=== PATIENT | male | born 1950 | race Caucasian/White ===

== ENCOUNTER 2016-09-24 14:30 | Emergency (ER) | payer MEDICARE, MEDICAID ==
[~2016-09-24] VITALS: Ht 180.3 cm; Wt 79.2 kg
[2016-09-24 14:32] VITALS: BP 147/83
== END 2016-09-24 14:52 | disposition home or self-care (01) ==
LOC: ED 14:30
DX: J01.00 Acute maxillary sinusitis, unspecified (principal); J01.20 Acute ethmoidal sinusitis, unspecified; J01.10 Acute frontal sinusitis, unspecified; E11.9 Type 2 diabetes mellitus without complications
CPT/HCPCS: 99283

== ENCOUNTER 2016-09-29 13:21 | Emergency (ER) | payer MEDICARE, MEDICAID ==
[~2016-09-29] VITALS: Ht 180.3 cm; Wt 78.0 kg
[2016-09-29 13:45] VITALS: BP 132/78
== END 2016-09-29 14:52 | disposition home or self-care (01) ==
LOC: ED 14:46
DX: J30.2 Other seasonal allergic rhinitis (principal); E11.9 Type 2 diabetes mellitus without complications
CPT/HCPCS: 99283